=== PATIENT | female | born 1945 | race Caucasian/White ===

== ENCOUNTER 2017-02-23 06:19 | Emergency (ER) | payer MEDICARE ==
[2017-02-23 07:40] LABS: BASOPHIL 0.5 % (0-2); EOSINOPHIL 1.7 % (0-7); HCT 41.6 % (37.0-47.0); HGB 14.2 g/dl (12.5-16.0); MCH 30.9 pg (25.0-31.0); MCHC 34.1 g/dL (32.0-36.0); MCV 90.4 fL (78.0-100.0); MONOCYTE 7.2 % (0-12); MPV 10.5 fL (6.0-9.5); NEUTROPHIL 54.6 % (41-80); PLT 166 K/uL (150-400); RDW 14.5 % (11.5-14.0); WBC 5.7 K/uL (4.0-10.5)
[2017-02-23 07:52] LABS: INR 1.39 (0.9-1.2); PROTHROMBIN TIME 16.6 SECONDS (11.7-14.0); PTT 35.3 SECONDS (23.2-31.4)
[2017-02-23 08:24] LABS: CKMB 2.86 ng/mL (0.97-4.94); MYOGLOBIN 25 ng/mL (26-65); TROPONIN T < 0.010 ng/mL
[2017-02-23 08:26] LABS: ALBUMIN 4.2 g/dL (3.4-4.8); BILIRUBIN - TOTAL 0.5 mg/dL (0.1-1.0); CREATININE 0.7 mg/dL (0.5-1.0); GLOBULIN (CALCULATION) 2.7 g/dL (2.2-4.2); POTASSIUM 4.2 mmol/L (3.5-5.1); TOTAL PROTEIN 6.9 g/dL (6.4-8.3)
== END 2017-02-23 15:30 | disposition other institution (70) ==
LOC: FER 06:19
PROVIDERS: Emergency Medicine Emergency Medical Services
DX: G45.9 Transient cerebral ischemic attack, unspecified (principal); R29.701 NIHSS score 1; I11.9 Hypertensive heart disease without heart failure; I48.91 Unspecified atrial fibrillation; E11.9 Type 2 diabetes mellitus without complications; J44.9 Chronic obstructive pulmonary disease, unspecified; D86.0 Sarcoidosis of lung; G47.33 Obstructive sleep apnea (adult) (pediatric); Z87.11 Personal history of peptic ulcer disease; Z87.442 Personal history of urinary calculi; Z82.49 Family history of ischemic heart disease and other diseases of the circulatory system; Z88.2 Allergy status to sulfonamides; Z88.4 Allergy status to anesthetic agent; Z91.041 Radiographic dye allergy status; Z79.01 Long term (current) use of anticoagulants; Z79.84 Long term (current) use of oral hypoglycemic drugs; Z79.891 Long term (current) use of opiate analgesic; Z79.51 Long term (current) use of inhaled steroids; Z79.899 Other long term (current) drug therapy; Z95.0 Presence of cardiac pacemaker; Z98.890 Other specified postprocedural states
CPT/HCPCS: 36415; 70450; 71010; 80053; 80061; 82550; 82553; 83874; 84484; 85025; 85610; 85730; 93005; J2930

== ENCOUNTER 2021-04-15 23:59 | Emergency (ER) | payer MEDICARE, OTHER ==
[~2021-04-15 23:59] MED LIST: ADVAIR 250-501 EACH INH; AMBIEN10 MG PO; AMBIEN5 MG PO; ASPIRIN EC81 MG PO; AUGMENTIN250 MG PO; CARDIZEM CD180 MG PO; CARDIZEM CD240 MG PO; CARDIZEM CD360 MG PO; CEFPODOXIME PR200 MG PO; CIPRO500 MG PO; CLARITIN10 MG PO; COLACE100 M1 PO; COZAAR100 MG PO; CYANOCOBAL1000 MCG/1 IM; CYMBALTA 30MG C30 MG PO; D3 PO; DEMADEX20 MG PO; DULOXETINE HCL60 MG PO; DUONEB 2.5-0.5M1 AMP INH; ELIQUIS2.5 MG PO; ELIQUIS5 MG PO; FEOSOL325 MG PO; GABAPENTIN PO; GLUCOSAMINE S1000 M1 PO; HYDROCODON-ACE1 EAC4 PO; HYDROCODON-ACE1 EAC6 PO; JANUVIA50 MG PO; K-DUR20 MEQ PO; K-TAB ER10 MEQ PO; LASIX40 MG PO; LOTENSIN10 MG PO; MACROBID100 MG PO; MAG-OXIDE 400M400 MG PO; MAGNESIUM PO; MATZIM LA240 MG PO; METFORMIN HCL500 MG PO; MYSOLINE50 MG PO; NEURONTIN300 MG PO; NEURONTIN400 MG PO; NORCO 5-325 TA1 EACH PO; NYSTATIN SUSP1 ML/ML SSW; PANTOPRAZOLE SO40 MG PO; POLY-IRON150 MG PO; POTASSIUM CHLO20 ME2 PO; PROTONIX 40MG T40 MG PO; SAVELLA100 MG PO; SINGULAIR10 MG PO; SPIRIVA RESPIMAT4 G1 INH; SYMBICORT 16010.2 GM INH; SYMBICORT 80-10.2 GM INH; TOPROL XL 50 MG50 MG PO; TORSEMIDE100 MG PO; TRAMADOL HCL50 MG PO; ULTRAM50 MG PO; XANAX0.25 MG PO; ZOCOR20 MG PO; ZOLPIDEM TARTRAT5 MG PO
[2021-04-16 03:18] LABS: BILIRUBIN NEGATIVE (NEGATIVE); BLOOD NEGATIVE Ery/uL (NEGATIVE); CLARITY CLEAR (CLEAR); COLOR YELLOW (YELLOW); GLUCOSE (U) NORMAL (NORMAL); LEUKOCYTES 2+ Leu/uL (NEGATIVE); NITRITE POSITIVE (NEGATIVE); PROTEIN NEGATIVE (NEGATIVE); SPECIFIC GRAVITY 1.015 (1.001-1.030); UROBILINOGEN 0.2 mg/dL (0.2-1.0); pH 5.5 (5.0-9.0)
[2021-04-16 03:28] LABS: BACTERIA 4+; URINARY WBC TNTC
[2021-04-16] MEDS ORDERED: CLOTRIM VAGINAL45 GM TOP (05:14)
[2021-04-16] MEDS ORDERED: MACROBID100 MG PO (05:14)
== END 2021-04-16 05:23 | disposition home or self-care (01) ==
LOC: FER 23:59
PROVIDERS: Emergency Medicine Emergency Medical Services
DX: N76.0 Acute vaginitis (principal); N30.00 Acute cystitis without hematuria; I48.91 Unspecified atrial fibrillation; E11.40 Type 2 diabetes mellitus with diabetic neuropathy, unspecified; I10 Essential (primary) hypertension; Z90.49 Acquired absence of other specified parts of digestive tract; Z98.84 Bariatric surgery status; Z95.0 Presence of cardiac pacemaker; Z98.890 Other specified postprocedural states; Z88.7 Allergy status to serum and vaccine; Z88.4 Allergy status to anesthetic agent; Z88.1 Allergy status to other antibiotic agents; Z91.041 Radiographic dye allergy status
CPT/HCPCS: 81001; 96372; 99283; J0696; J1170

== ENCOUNTER 2021-07-12 14:31 | Emergency (ER) | payer MEDICARE, OTHER ==
[~2021-07-12 14:31] MED LIST changes: +CLOTRIM VAGINAL45 GM TOP
[2021-07-12] MEDS ORDERED: MEDROL 4MG DOSEP4 MG PO (16:25)
== END 2021-07-12 16:34 | disposition home or self-care (01) ==
LOC: FER 14:31
DX: S93.601A Unspecified sprain of right foot, initial encounter (principal); E11.9 Type 2 diabetes mellitus without complications; Z88.4 Allergy status to anesthetic agent; Z88.2 Allergy status to sulfonamides; Z88.8 Allergy status to other drugs, medicaments and biological substances; Z91.041 Radiographic dye allergy status; X58.XXXA Exposure to other specified factors, initial encounter; Y92.009 Unspecified place in unspecified non-institutional (private) residence as the place of occurrence of the external cause
CPT/HCPCS: 73630

== ENCOUNTER 2021-07-16 08:37 | Emergency (ER) | payer MEDICARE, OTHER ==
[~2021-07-16 08:37] MED LIST changes: +MEDROL 4MG DOSEP4 MG PO
[2021-07-16 09:00] LABS: BASOPHIL 0.9 % (0-2); EOSINOPHIL 5.3 % (0-7); HCT 39.1 % (37.0-47.0); HGB 12.5 g/dl (12.5-16.0); LYMPHOCYTE 24.9 % (15-48); MCH 32.1 pg (25.0-31.0); MCV 100.3 fL (78.0-100.0); MONOCYTE 7.7 % (0-12); MPV 10.5 fL (6.0-9.5); NEUTROPHIL 60.5 % (41-80); NRBC 0; PLT 161 K/uL (150-400); RDW 16.1 % (11.5-14.0); WBC 4.5 K/uL (4.0-10.5)
[2021-07-16 09:36] LABS: BUN/CREAT RATIO (CALC) 30.8 RATIO; CREATININE 0.65 mg/dL (0.51-0.95); POTASSIUM 4.8 mmol/L (3.5-5.1)
[2021-07-16 10:37] LABS: BILIRUBIN NEGATIVE (NEGATIVE); BLOOD 2+ Ery/uL (NEGATIVE); CLARITY CLEAR (CLEAR); COLOR YELLOW (YELLOW); GLUCOSE (U) NORMAL (NORMAL); LEUKOCYTES 3+ Leu/uL (NEGATIVE); NITRITE POSITIVE (NEGATIVE); PROTEIN NEGATIVE (NEGATIVE); SPECIFIC GRAVITY <=1.005 (1.001-1.030); UROBILINOGEN 0.2 mg/dL (0.2-1.0); pH 6.5 (5.0-9.0)
[2021-07-16 10:51] LABS: URINARY WBC TNTC
[2021-07-16 10:52] LABS: BACTERIA 3+
[2021-07-16] MEDS ORDERED: KEFLEX250 MG PO (12:02)
== END 2021-07-16 12:07 | disposition home or self-care (01) ==
LOC: FER 08:37
PROVIDERS: Emergency Medicine
DX: S20.212A Contusion of left front wall of thorax, initial encounter (principal); I10 Essential (primary) hypertension; E11.9 Type 2 diabetes mellitus without complications; Z88.2 Allergy status to sulfonamides; Z91.041 Radiographic dye allergy status; W07.XXXA Fall from chair, initial encounter; Y92.009 Unspecified place in unspecified non-institutional (private) residence as the place of occurrence of the external cause
CPT/HCPCS: 36415; 71046; 80048; 81001; 85025; 87076; 87088; 87186; J0696

== ENCOUNTER 2021-07-28 16:48 | Inpatient (IN) | payer MEDICARE, OTHER ==
[~2021-07-28] VITALS: Ht 162.6 cm; Wt 117.9 kg
[~2021-07-28 16:48] MED LIST changes: +KEFLEX250 MG PO
[2021-07-28 17:35] LABS: BASOPHIL 0.6 % (0-2); EOSINOPHIL 3.8 % (0-7); HGB 10.8 g/dl (12.5-16.0); LYMPHOCYTE 16.2 % (15-48); MCH 32.2 pg (25.0-31.0); MCHC 31.8 g/dL (32.0-36.0); MCV 101.5 fL (78.0-100.0); MONOCYTE 7.5 % (0-12); MPV 10.6 fL (6.0-9.5); NEUTROPHIL 71.5 % (41-80); NRBC 0; PLT 167 K/uL (150-400); RBC 3.35 M/uL (4.20-5.40); RDW 17.2 % (11.5-14.0)
[2021-07-28 17:57] LABS: ALBUMIN 3.6 g/dL (3.4-5.0); BILIRUBIN - TOTAL 0.5 mg/dL (0.2-1.0); CREATININE 0.72 mg/dL (0.51-0.95); GLOBULIN (CALCULATION) 2.8 g/dL; POTASSIUM 4.2 mmol/L (3.5-5.1); TOTAL PROTEIN 6.4 g/dL (6.4-8.2)
[2021-07-28 18:21] LABS: CORONAVIRUS 2019 SARS-COV-2 NEGATIVE (NEGATIVE); INFLUENZA A NAA NEGATIVE (NEGATIVE)
[2021-07-28] MEDS ORDERED: AMBIEN5 MG PO (22:41)
[2021-07-28] MEDS ORDERED: MYSOLINE50 MG PO (22:42)
[2021-07-29 05:45] LABS: BASOPHIL 0.4 % (0-2); HCT 34.4 % (37.0-47.0); HGB 10.9 g/dl (12.5-16.0); LYMPHOCYTE 20.2 % (15-48); MCH 31.9 pg (25.0-31.0); MCHC 31.7 g/dL (32.0-36.0); MCV 100.6 fL (78.0-100.0); MONOCYTE 8.5 % (0-12); MPV 10.1 fL (6.0-9.5); NEUTROPHIL 65.2 % (41-80); NRBC 0; PLT 161 K/uL (150-400); RBC 3.42 M/uL (4.20-5.40); RDW 17.2 % (11.5-14.0); WBC 4.6 K/uL (4.0-10.5)
[2021-07-29 06:06] LABS: ALBUMIN 3.4 g/dL (3.4-5.0); BILIRUBIN - TOTAL 0.6 mg/dL (0.2-1.0); BUN/CREAT RATIO (CALC) 24.2 RATIO; CREATININE 0.66 mg/dL (0.51-0.95); GLOBULIN (CALCULATION) 3.1 g/dL; POTASSIUM 4.2 mmol/L (3.5-5.1); TOTAL PROTEIN 6.5 g/dL (6.4-8.2)
[2021-07-29 16:35] LABS: BILIRUBIN NEGATIVE (NEGATIVE); BLOOD NEGATIVE Ery/uL (NEGATIVE); CLARITY CLEAR (CLEAR); COLOR YELLOW (YELLOW); GLUCOSE (U) NORMAL (NORMAL); LEUKOCYTES 1+ Leu/uL (NEGATIVE); NITRITE NEGATIVE (NEGATIVE); PROTEIN NEGATIVE (NEGATIVE); UROBILINOGEN 0.2 mg/dL (0.2-1.0); pH 6.5 (5.0-9.0)
[2021-07-29 16:45] LABS: BACTERIA 1+
[2021-07-30 06:13] LABS: BASOPHIL 0.5 % (0-2); EOSINOPHIL 5.1 % (0-7); HCT 35.6 % (37.0-47.0); HGB 11.2 g/dl (12.5-16.0); LYMPHOCYTE 16.8 % (15-48); MCH 32.1 pg (25.0-31.0); MCHC 31.5 g/dL (32.0-36.0); MONOCYTE 8.5 % (0-12); MPV 10.2 fL (6.0-9.5); NEUTROPHIL 68.9 % (41-80); NRBC 0; PLT 153 K/uL (150-400); RBC 3.49 M/uL (4.20-5.40); RDW 17.1 % (11.5-14.0); WBC 4.3 K/uL (4.0-10.5)
[2021-07-30 07:31] LABS: BUN/CREAT RATIO (CALC) 22.7 RATIO; CREATININE 0.66 mg/dL (0.51-0.95); MAGNESIUM 2.4 mg/dL (1.8-2.4); POTASSIUM 4.1 mmol/L (3.5-5.1)
[2021-07-31 06:35] LABS: BASOPHIL 0.6 % (0-2); EOSINOPHIL 5.7 % (0-7); HCT 35.8 % (37.0-47.0); HGB 11.3 g/dl (12.5-16.0); LYMPHOCYTE 13.6 % (15-48); MCH 32.4 pg (25.0-31.0); MCHC 31.6 g/dL (32.0-36.0); MCV 102.6 fL (78.0-100.0); MONOCYTE 8.4 % (0-12); MPV 10.4 fL (6.0-9.5); NEUTROPHIL 71.3 % (41-80); NRBC 0; PLT 152 K/uL (150-400); RBC 3.49 M/uL (4.20-5.40); RDW 17.2 % (11.5-14.0); WBC 5.1 K/uL (4.0-10.5)
[2021-07-31 07:13] LABS: ALBUMIN 3.2 g/dL (3.4-5.0); BILIRUBIN - TOTAL 0.5 mg/dL (0.2-1.0); BUN/CREAT RATIO (CALC) 27.9 RATIO; CREATININE 0.61 mg/dL (0.51-0.95); GLOBULIN (CALCULATION) 3.2 g/dL; MAGNESIUM 2.7 mg/dL (1.8-2.4); POTASSIUM 4.2 mmol/L (3.5-5.1); TOTAL PROTEIN 6.4 g/dL (6.4-8.2)
[2021-07-31] MEDS ORDERED: DEMADEX20 MG PO (11:03)
--- NOTE | 2021-07-31 12:53 | NUR ---
PER [place] WITH SIGNATURE, PT HAS BEEN ACCEPTED AT [facility] IN [place]. REPORT NUMBER IS [phone] FAX NUMBER IS [phone] ATTEMPTED PHONE CALL TO SPOUSE, BUT NO ANSWER, HAD TO LEAVE MESSAGE TO CONTACT ME.
--- NOTE | 2021-07-31 14:55 | NUR ---
PT. SPOUSE CALLED ME AND I ADVISED HIM OF THE PLACEMENT. MR. BISHOP STATED THAT A NURSE HAD CONTACTED HIM AND THAT HE WAS COMING OVER TO SEE HIS BEFORE SHE LEFT.
[2021-07-31] MEDS ORDERED: AMBIEN5 MG PO (16:53)
[2021-07-31] MEDS ORDERED: ULTRAM50 MG PO (17:44)
== END 2021-07-31 18:23 | DRG 291 ==
LOC: FER 16:48 → FMS 20:02
PROVIDERS: Family Medicine; Internal Medicine; Internal Medicine Cardiovascular Disease; Nurse Practitioner; ADMIT Internal Medicine
DX: I13.0 Hypertensive heart and chronic kidney disease with heart failure and stage 1 through stage 4 chronic kidney disease, or unspecified chronic kidney disease (principal); I50.33 Acute on chronic diastolic (congestive) heart failure; J96.01 Acute respiratory failure with hypoxia; Z68.41 Body mass index [BMI] 40.0-44.9, adult; E66.01 Morbid (severe) obesity due to excess calories; I48.0 Paroxysmal atrial fibrillation; Z20.822 Contact with and (suspected) exposure to COVID-19; N64.89 Other specified disorders of breast; E11.22 Type 2 diabetes mellitus with diabetic chronic kidney disease; N18.9 Chronic kidney disease, unspecified; F41.9 Anxiety disorder, unspecified; I25.10 Atherosclerotic heart disease of native coronary artery without angina pectoris; D86.0 Sarcoidosis of lung; E11.40 Type 2 diabetes mellitus with diabetic neuropathy, unspecified; K21.9 Gastro-esophageal reflux disease without esophagitis; W19.XXXA Unspecified fall, initial encounter; I27.20 Pulmonary hypertension, unspecified; D63.1 Anemia in chronic kidney disease; G20 Parkinson's disease; I87.8 Other specified disorders of veins; D53.9 Nutritional anemia, unspecified; Z90.49 Acquired absence of other specified parts of digestive tract; Z90.710 Acquired absence of both cervix and uterus; Z95.0 Presence of cardiac pacemaker; Z98.41 Cataract extraction status, right eye; Z98.42 Cataract extraction status, left eye; Z98.890 Other specified postprocedural states; Z88.2 Allergy status to sulfonamides; Z88.7 Allergy status to serum and vaccine; Z88.8 Allergy status to other drugs, medicaments and biological substances; Z91.041 Radiographic dye allergy status; Z79.01 Long term (current) use of anticoagulants; Z79.51 Long term (current) use of inhaled steroids; Z79.84 Long term (current) use of oral hypoglycemic drugs; Z79.899 Other long term (current) drug therapy
CPT/HCPCS: 36415; 71250; 73630; 73700; 78315; 80048; 80053; 81001; 82607; 82962; 83735; 83880; 84145; 84484; 85025; 93005; 94640; 94760; 97163; 97166; 97530-GP; 97535; A9503; J0696; U0002